=== PATIENT | female | born 1985 | race Hispanic/Latino ===

== ENCOUNTER 2020-01-08 18:33 | Inpatient (IN) | payer MEDICAID, OTHER ==
[~2020-01-08] VITALS: Ht 157.5 cm; Wt 77.1 kg
[2020-01-08] MEDS ORDERED: ONDANSETRON HCL 4 MG/2 ML VIAL ONE ×2 (19:10→23:08)
[2020-01-08] MEDS ORDERED: MORPHINE SULFATE 4 MG/1ML SYG ONE ×2 (19:10→19:59)
[2020-01-08 19:16] LABS: BASOPHILS % (AUTO) 0.3 % (0.0-5.0); EOSINOPHILS % (AUTO) 0.3 % (0.0-8.0); HEMATOCRIT 33.6 % (36-48); LYMPHOCYTES % (AUTO) 11.5 % (21.0-51.0); MEAN CORPUSCULAR HEMOGLOBIN 31.1 pg (27.0-33.0); MEAN CORPUSCULAR HGB CONC 34.5 g/dL (32.0-36.0); MEAN CORPUSCULAR VOLUME 90.1 fL (79-99); MONOCYTES % (AUTO) 3.9 % (3.0-13.0); NEUTROPHILS % (AUTO) 83.7 % (40.0-77.0); PLATELET COUNT (AUTO) 275 K/uL (130-400); RED BLOOD CELL COUNT(AUTO) 3.73 MIL/uL (4.00-5.50); RED CELL DISTRIBUTION WIDTH 12.4 % (11.0-15.5); WHITE BLOOD COUNT (AUTO) 15.5 K/uL (4.8-10.8)
[2020-01-08 19:26] LABS: CREATININE 0.8 mg/dL (0.5-1.5); POTASSIUM 3.5 mmol/L (3.5-5.1)
[2020-01-08 19:30] LABS: ALBUMIN 3.8 g/dL (3.5-5.0); BILIRUBIN,DIRECT 0.1 mg/dL (0.0-0.3); BILIRUBIN,TOTAL 0.6 mg/dL (0.2-1.0); TOTAL PROTEIN, SERUM 8.4 g/dL (6.0-8.3)
[2020-01-08 19:51] LABS: APPEARANCE,URINE Cloudy (CLEAR); BILIRUBIN,URINE Negative (NEGATIVE); COLOR,URINE Dark Yellow (YELLOW); GLUCOSE, URINE (UA) Negative (NEGATIVE); HCG,QUAL RESULT POSITIVE (NEGATIVE); KETONES,URINE Trace mg/dL (NEGATIVE); LEUKOCYTE ESTERASE ,URINE Moderate (NEGATIVE); NITRATE,URINE Positive (NEGATIVE); OCCULT BLOOD,URINE Moderate (NEGATIVE); PH,URINE 6.5 (5.0-8.0); PROTEIN,URINE POS 1+ mg/dL (NEGATIVE)
[2020-01-08 20:08] LABS: AMPHET/METH SCREEN,URINE NEGATIVE (NEGATIVE); BARBITURATE SCREEN, URINE NEGATIVE (NEGATIVE); BENZODIAZEPINES SCREEN,URINE NEGATIVE (NEGATIVE); CANNABINOID SCREEN,URINE POSITIVE (NEGATIVE); COCAINE SCREEN,URINE NEGATIVE (NEGATIVE); OPIATE SCREEN,URINE NEGATIVE (NEGATIVE); PHENCYCLIDINE SCREEN,URINE NEGATIVE (NEGATIVE)
[2020-01-08 20:12] LABS: BACTERIA,URINE Moderate /HPF (None Seen); RBC,URINE None Seen /HPF (0-1)
[2020-01-08] MEDS ORDERED: LIDOCAINE PF 2% 5ML ABBOJECT ONE (23:08)
[2020-01-08] MEDS ORDERED: PROPOFOL 10 MG/ML 20ML VIAL IV ONE (23:08)
[2020-01-08] MEDS ORDERED: DEXAMETHASONE SOD PHOSPHATE 10MG/ML 1ML VIAL ONE (23:08)
[2020-01-08] MEDS ORDERED: FENTANYL CITRATE PF 50 MCG/1 ML 2ML VIAL ONE ×2 (23:08→23:45)
[2020-01-08] MEDS ORDERED: MIDAZOLAM HCL 1 MG/ML 2ML VIAL ONE (23:08)
[2020-01-08] MEDS ORDERED: ROCURONIUM 10MG/1ML SYR 10 MG/ML ML ONE (23:09)
[2020-01-08] MEDS ORDERED: CEFAZOLIN SODIUM 1 GM VIAL ONE (23:21)
[2020-01-09] VITALS (28 sets, daily range): BP systolic 90–150; BP diastolic 58–85
[2020-01-09] MEDS ORDERED: GLYCOPYRROLATE 1 MG/5 ML SYRINGE ONE (00:11)
[2020-01-09] MEDS ORDERED: NEOSTIGMINE 5MG/5ML SYR IV ONE (00:12)
[2020-01-09] MEDS ORDERED: MEPERIDINE-PF 25 MG/ML SYG ONE ×2 (00:40→00:50)
[2020-01-09] MEDS ORDERED: FENTANYL CITRATE PF 50 MCG/1 ML 2ML VIAL ONE (00:59)
--- NOTE | 2020-01-09 01:40 | NUR ---
Patient received from PACU; Patient came in from PACU via bed with IV of NS infusing regulated at 125 ml/hour, Oxygen inhalation via nasal Cannula at 2L/minute, Marquez catheter patent flowing clear yellow urine. Incision with dressing dry & intact. Patient oriented to room, call light given, Plan of care discussed with patient verbalizes understanding.
[2020-01-09] MEDS ORDERED: ACETAMINOPHEN-CODEINE 300/30MG TAB PO PRN (02:15)
[2020-01-09] MEDS ORDERED: IBUPROFEN 600 MG TABLET PO PRN (02:15)
[2020-01-09] MEDS ORDERED: DOCUSATE SODIUM 100 MG CAP PO PRN (02:15)
[2020-01-09] MEDS ORDERED: SIMETHICONE 80 MG TAB.CHEW PO PRN (02:15)
[2020-01-09] MEDS ORDERED: BISACODYL 10 MG SUPP.RECT RC PRN (02:15)
[2020-01-09] MEDS ORDERED: MEPERIDINE-PF 75 MG/ML SYG IM PRN (02:15)
[2020-01-09] MEDS ORDERED: PROMETHAZINE HCL 25 MG/ML 1ML AMPULE IM PRN ×2 (02:15)
[2020-01-09] MEDS ORDERED: FLUO10CA21 PO (02:55)
[2020-01-09] MEDS: DEXTROSE 5 %-0.45 % NACL 1,000 ML IV SCH ×2 (04:05→09:49)
--- NOTE | 2020-01-09 04:20 | NUR ---
Oxygen inhalation via nasal cannula off.
[2020-01-09 06:02] LABS: HEMATOCRIT 30.7 % (36-48); MEAN CORPUSCULAR HEMOGLOBIN 31.1 pg (27.0-33.0); MEAN CORPUSCULAR HGB CONC 33.6 g/dL (32.0-36.0); MEAN CORPUSCULAR VOLUME 92.7 fL (79-99); RED BLOOD CELL COUNT(AUTO) 3.31 MIL/uL (4.00-5.50); RED CELL DISTRIBUTION WIDTH 12.7 % (11.0-15.5); WHITE BLOOD COUNT (AUTO) 12.8 K/uL (4.8-10.8)
--- NOTE | 2020-01-09 07:10 | NUR ---
Communication: Dr. morales called via telephone inform about patient. he said, " OK"
[2020-01-09] MEDS ORDERED: CEFAZOLIN SODIUM 1 GM VIAL IVP SCH (07:30)
--- NOTE | 2020-01-09 09:45 | NUR ---
DR. TAYLOR CALLED AND WAS UPDATED ON PATIENT'S STATUS. MD STATES RESIDENT DR. GUO WILL BE ROUNDING TO DISCHARGE PATIENT TODAY.
--- NOTE | 2020-01-09 10:46 | NUR ---
PATIENT SITTING IN BED SIDE CHAIR. NO COMPLAINTS OF DIZZINESS REPORTED. CALL LIGHT IS IN REACH, ADVISED PATIENT TO CALL WITH ANY NEEDS OR CONCERNS.
--- NOTE | 2020-01-09 11:48 | NUR ---
DR. GUO RESIDENT ROUNDING ON PATIENT. DISCHARGE POC DISCUSSED WITH PATIENT. INCISION ASSESSED BY DR. GUO. QUESTIONS INVITED AND ANSWERED. PT VOICED UNDERSTANDING ON ALL DISCHARGE INSTRUCTIONS.
--- NOTE | 2020-01-09 12:18 | NUR ---
DC PLAN VISITED WITH PATIENT. PATIENT LIVES WITH SPOUSE. INDEPENDENT ABLE TO PERFORM ADL'S. PATIENT HAS NO SERVICES OR DME'S. FEELS SAFE TO RETURN HOME. GOES TO [facility]. Addendum: 01/09/20 at 1220 by SY GONZALEZ RN CM Amended: Links added.
--- NOTE | 2020-01-09 12:25 | NUR ---
DISCHARGE INSTRUCTIONS READ AND EXPLAINED TO PATIENT. INCISION CARE REVIEWED WITH PATIENT, HANDOUTS GIVEN. RX FOR TYLENOL #3 HANDED TO PATIENT. PT VERBALIZED UNDERSTANDING ON ALL INSTRUCTIONS AND THAT SHE WILL SCHEDULE APPOINTMENT FOR Sunday01/19/20.
--- NOTE | 2020-01-09 12:40 | NUR ---
PATIENT LEFT UNIT VIA WHEELCHAIR WITH BELONGINGS IN HAND. PERSONAL VEHICLE USED FOR TRANSPORTATION. NO COMPLAINTS OR CONCERNS ADDRESSED FROM PATIENT ON DISCHARGE.
== END 2020-01-09 12:40 | disposition home or self-care (01) | DRG 819 ==
LOC: EDH 18:33 → EDHIP 18:34 → WSH 01-09 01:40 → UNDODISIN 01-09 12:40
PROVIDERS: ADMIT Obstetrics & Gynecology; ATTEND Obstetrics & Gynecology
PROC: 10T20ZZ Resection of Products of Conception, Ectopic, Open Approach (ICD-10-PCS; principal; 2020-01-08 23:20)
DX: O00.90 Unspecified ectopic pregnancy without intrauterine pregnancy (principal)
CPT/HCPCS: 36415; 76817; 80048; 80076; 80305; 81001; 81025; 84702; 85025; 85027; 86900; 86901; 87077; 87088; 87186; 88305; 88341; 88342; A4344; G0378; J0690; J1100; J2001; J2175; J2250; J2270; J2405; J2550; J2704; J2710; J3010; J3490; J7030

== ENCOUNTER 2020-04-11 04:06 | Emergency (ER) | payer MEDICAID ==
[~2020-04-11 04:06] MED LIST: FLUO10CA21 PO
== END 2020-04-11 04:55 ==
LOC: EDH 04:06
DX: Z02.89 Encounter for other administrative examinations (principal)
CPT/HCPCS: 81025